=== PATIENT | female | born 1995 | race Caucasian/White ===

== ENCOUNTER 2017-06-18 23:52 | Emergency (ER) | payer OTHER ==
[~2017-06-18] VITALS: Ht 175.3 cm; Wt 107.3 kg
[~2017-06-18 23:52] MED LIST: ALBUTEROL SULFAT3 M3 IH; ALBUTEROL SULFAT8 MG; ALBUTEROL0.09 MG/A1 IH; ALBUTEROL0.09 MG/A3 IH; ALEVE 220MG220 MG PO; AMITRIPTYLINE; BENADRYL; CIPRO HC OTIC S10 ML OT; CLARITIN; CLEOCIN HCL300 MG PO; CORTIZONE TP; CORTIZONE-10 MAXIM1% TP; ELIDEL; ELIDEL1% TP; EPI-PEN1 MG/ML MR; IBUPROFEN600 MG PO; IMITREX NA20 MG/SPRA NS; LORTAB ELIX0.5 MG/ML PO; MECLIZINE25 MG PO; NEXPLANON68 MG ID; NORCO 325 MG-51 TAB PO; OMEPRAZOLE20 MG PO; PHENERGAN 25 TA25 MG PO; PREDNISONE20 MG PO; PROVENTIL0.09 MG/A1 IH; TOPAMAX 25MG25 MG PO; TRIAMCINOLONE A15 G2 TP; TRIAMCINOLONE0.1% TP; TYLENOL W/COD1 UDTAB PO; ULTRAM 50MG TAB50 MG PO; XANAFLEX; ZANAFLEX 4MG TAB4 MG PO; ZITHROMAX Z PA250 MG PO; ZOFRAN4 M1 PO; [UNRECOGNIZED DRUG - CODE] PO
[2017-06-18 23:53] VITALS: BP 139/90; TEMP 98.1
[2017-06-19] MEDS ORDERED: PREDNISONE10 MG PO (00:13)
[2017-06-19 00:34] VITALS: PULSE 90
== END 2017-06-19 00:34 | disposition home or self-care (01) ==
LOC: COL.ER 23:52
DX: L50.9 Urticaria, unspecified (principal); J45.909 Unspecified asthma, uncomplicated
CPT/HCPCS: J7512

== ENCOUNTER 2019-03-11 01:19 | Emergency (ER) | payer SELFPAY ==
[~2019-03-11] VITALS: Ht 175.3 cm; Wt 118.2 kg
[~2019-03-11 01:19] MED LIST changes: +PREDNISONE10 MG PO
[2019-03-11 01:25] VITALS: BP 126/78; TEMP 100.5
[2019-03-11] MEDS ORDERED: ZITHROMAX Z PA250 MG PO (02:26)
[2019-03-11 02:27] VITALS: PULSE 97
== END 2019-03-11 02:27 | disposition home or self-care (01) ==
LOC: COL.ER 01:19
DX: J02.9 Acute pharyngitis, unspecified (principal); Z90.49 Acquired absence of other specified parts of digestive tract; F17.210 Nicotine dependence, cigarettes, uncomplicated
CPT/HCPCS: J1100; J2550